=== PATIENT | female | born 2000 | race Two or more races ===

== ENCOUNTER → 2021-04-28 | Outpatient (CLI) | payer OTHER ==
--- NOTE | 2021-04-28 17:20 | CARD ---
MR#: [id number] Date of Study: 04/28/2021 Ordering Physician: MARISSA ELIAS, Referring Physician: Skylar MILLER: Kell Mahmood RDCS APPROVED REPORT INDICATION Chest Pain Reason : Patient complained of pain PROCEDURE The patient underwent an Exercise Stress Test using the Kev Protocol. Blood pressure, heart rate, a nd EKG were monitored. An Echocardiogram was performed by hvac service technician in four stages in quad fashion. At peak stress four se lected images were obtained and placed side by side with resting images for comparison. STRESS ECHO FINDINGS The resting Echocardiogram showed normal left ventricular systolic contractility with an estimated Ej ection Fraction of about 55 %. The Stress Echocardiogram showed normal augmentation of myocardial wall segments using a 16 segment m cel[place]. The Stress Echocardiogram left ventricular systolic contractility has an estimated Ejection Fraction of about 65%. Test Type: Exercise Stress Nurse/Tech: Tabitha Beaulieu R.N. Test Indications: chest pain Cardiac History and Allergies: none Medications: none Medical History: none Resting ECG: sr Resting Heart Rate: 72 bpm Resting Blood Pressure: 129/63mmHg Pretest Chest Pain: No chest pain Nurse/Tech Notes lungs cta, heart tones regular Stress Symptoms No chest pain or symptoms. POST EXERCISE Reason for Termination: Reached target heart rate Target HR: Yes Max HR: 185 bpm 94% of Maximum Predicted HR: 197 bpm Exercise duration: 12:02 min:sec, 5 Stage Exercise capacity: 12.8METs Max Blood Pressure: 153/77mmHg Blood Pressure response to exercise: Normal blood pressure response during stress. Heart Rate response to exercise: normal Chest Pain: No. Arrhythmia: No. INTERPRETATION Stress EKG Conclusion: The resting EKG showed a sinus rhythm. The stress EKG had no significant changes from baseline. No EKG evidence of stress-induced ischemia or arrhythmias. <Conclusion> Good exercise tolerance No chest pain reported with exertion. No EKG evidence of stress-induced ischemia or arrhythmias Normal left ventricular systolic function on echo at rest Normal LV systolic response to exertion with no regional wall motion abnormalities. Low risk treadmill stress echo. Signed by : Herman Bustillos MD Electronically Approved : 04/28/2021 17:20:29
== END ==
LOC: ECHO 13:53
PROVIDERS: ATTEND Internal Medicine Cardiovascular Disease
DX: R07.9 Chest pain, unspecified (principal)
CPT/HCPCS: 93017; 93350